=== PATIENT | male | born 1990 | race African-American/Black ===

== ENCOUNTER 2021-07-11 10:14 | Emergency (ER) | payer OTHER, MEDICAID ==
[~2021-07-11] VITALS: Ht 149.9 cm; Wt 137.0 kg
[2021-07-11 10:52] VITALS: BP 133/78
== END 2021-07-11 12:44 | disposition home or self-care (01) ==
LOC: ER 10:14
DX: J40 Bronchitis, not specified as acute or chronic (principal); Z20.822 Contact with and (suspected) exposure to COVID-19
CPT/HCPCS: 36415; 71046; 87426